=== PATIENT | male | born 1995 | race Caucasian/White ===

== ENCOUNTER 2022-03-12 14:04 | Emergency (ER) | payer OTHER, SELFPAY ==
--- NOTE | ~2022-03-12 | XR_ITS ---
EXAMINATION: XR abdomen/kub 1V DATE: 03/12/2022 17:24 INDICATION: Fever and hematuria TECHNIQUE: A supine view of the abdomen on 2 radiographs was obtained. COMPARISON: None. FINDINGS: 3 calcification is in the left hemipelvis and one in the right hemipelvis, all measuring approximatel y 2 mm which could represent either ureteral stones or phleboliths. No definitive stone seen in the r egions of the bilateral kidneys. Assessment is somewhat limited by superimposed gas-filled loops of s mall bowel and colon. No dilated loops of gas-filled bowel to suggest obstruction. Bones are unremark able. IMPRESSION: 1. A few 2 mm calcifications in the pelvis, most likely phleboliths although differential would inclu de distal ureteral stones. Reviewed, dictated and finalized at location A. [employer] IMPRESSION: 1. A few 2 mm calcifications in the pelvis, most likely phleboliths although di fferential would include distal ureteral stones.
[2022-03-12 16:09] VITALS: BP 129/84; PULSE 135; RESP 18; TEMP 37.3; O2SAT 99
--- NOTE | 2022-03-12 16:52 | ED.GENADULT ---
HPI - General Adult General Chief complaint: Upper Respiratory Infection Stated complaint: Cough,Body Aches,Congestion,Headache Time Seen by Provider: 03/12/22 16:52 Source: patient Mode of arrival: ambulatory Limitations: no limitations History of Present Illness HPI narrative: Male patient presents to [facility] with complaints of flu-like symptoms for the past 5 days. Patient states he has had high fevers as high as 103. Patient states he has had body aches and chills. Patient states that he has had diarrhea and nausea denies any vomiting. Patient denies any chest pain, shortness of breath. Patient states he was tested for influenza and COVID test negative the same days symptoms started. Patient states he has been taking Tylenol and ibuprofen here in the ER for the fevers but not consistently. Patient states he has been trying to drink a lot of fluid but states he does not think he is drinking enough. Related Data Home Medications Medication Instructions Recorded Confirmed No Home Medications 03/12/22 03/12/22 Allergies Allergy/AdvReac Type Severity Reaction Status Date / Time No Known Allergies Allergy Verified 03/12/22 16:38 Review of Systems Review of Systems: CONSTITUTIONAL: Positive fever, chills,and sweats. EYES: Denies visual changes, redness, or discharge. ENT: Positive rhinorrhea, congestion, denies sore throat, or otalgia. CARDIOVASCULAR: Denies chest pain, palpitations, or edema. RESPIRATORY: Denies cough or dyspnea. GASTROINTESTINAL: Denies abdominal pain,positive nausea,denies vomiting, positive diarrhea. GENITOURINARY: Denies dysuria or hematuria.decrease urine output SKIN: Denies rash or itching. MUSCULOSKELETAL: Denies back pain, joint pain, or myalgia. NEUROLOGIC: Denies headache, numbness, or weakness. PSYCHIATRIC: Denies anxiety or depression. [facility] Past Medical History Medical History (Updated 03/12/22 @ 18:44 by FARNAZ Johansen) No significant active problems Comments At the time of my signature I agree with nursing past medical history, surgical, social, and family history. There is no relevant family history pertinent to the presenting complaint. Exam Narrative: GENERAL: Well-appearing, well-nourished, and in no acute distress. HEAD: Normocephalic, atraumatic. EYES: PERRLA and EOMI. ENT: Nares clear, no rhinorrhea or epistaxis. Mucous membranes moist. NECK: Supple. No lymphadenopathy CHEST: Clear to auscultation. No respiratory distress. HEART: Regular rate and rhythm. No murmur heard. Normal peripheral pulses. ABDOMEN: Soft, nontender, nondistended, normal active bowel sounds. EXTREMITIES: Normal range of motion. No edema. SKIN: Warm, dry, no rash. NEURO: No focal deficits. Alert and oriented x3. Course Course Level of Care: Express Care Visit Reevaluation(s) Reevaluation #1: Re-evaluate patient after receiving urine dip results. Urine dip results are pretty consistent with possible dehydration however there was 2+ blood present in the urine dip which I was not expecting. Discussed with patient about his symptoms and did a more thorough abdominal exam. Patient states he has had some low back pain. Patient states he does have chronic back pain however the low back pain has been more increased the last couple days and normal. Patient denies any pain with urination but states it does feel hot when he urinates. Patient denies any abdominal pain at this time. No tenderness noted to palpation on 4 quadrants. Patient's bowel sounds were hyperactive. Discussed with patient that kind of concerned that he may possibly have kidney stones as he has kidney stones in the presence of the high fever, body aches and chills this does make me concerned that he may need to go the hospital for further evaluation. Discussed the patient has common influenza though continued to be negative even after retesting today. Patient does not really exhibit any other viral symptoms denies an
[2022-03-12 17:15] LABS: Glucose Point of Care 113 mg/dl (65-105)
== END 2022-03-12 18:40 | disposition short-term general hospital (02) ==
PROVIDERS: Emergency Provider Nurse Practitioner Family; PCP Nurse Practitioner
DX: R50.9 Fever, unspecified (principal); R31.9 Hematuria, unspecified; Z20.822 Contact with and (suspected) exposure to COVID-19; R73.09 Other abnormal glucose
CPT/HCPCS: 74018; 81003; 82948; 87426; 87804; 99213; C9803; G0463